=== PATIENT | male | born 1950 | race Caucasian/White ===

== ENCOUNTER 2017-04-09 19:53 | Emergency (ER) | payer BC ==
[2017-04-09] MEDS ORDERED: Diphtheria,Pertussis(Acell),Tetanus Vaccine 0.5 ML Syringe IM ONE (19:58)
[2017-04-09] MEDS ORDERED: Bacitracin Oint 1 GM U/D Packet TOP ONE (19:59)
[2017-04-09] MEDS ORDERED: Lidocaine 1% 20 ML MDV INJECT ONE (19:59)
--- NOTE | 2017-04-09 20:02 | EDM.PDOC ---
ED HPI GENERAL MEDICAL PROBLEM - General Chief Complaint: Laceration Stated Complaint: CUT ON RIGHT HAND Time Seen by Provider: 04/09/17 20:00 Source of Information: Reports: Patient History Limitations: Reports: No Limitations - History of Present Illness INITIAL COMMENTS - FREE TEXT/NARRATIVE: HISTORY AND PHYSICAL: History of present illness: Patient is a 66-year-old male who presents to the emergency room with a laceration to the right hand. Patient was in his carotids working with a circular saw and received a 4 cm laceration to the web between the first and second digit. Patient has full range of motion without any difficulty Patient is unsure of his last tetanus shot, we will provide that today. Review of systems: As per history of present illness and below otherwise all systems reviewed and negative. Past medical history: As per history of present illness and as reviewed below otherwise noncontributory. Surgical history: As per history of present illness and as reviewed below otherwise noncontributory. Social history: No reported history of drug or alcohol abuse. Family history: As per history of present illness and as reviewed below otherwise noncontributory. Physical exam: HEENT: Atraumatic, normocephalic, pupils reactive, negative for conjunctival pallor or scleral icterus, mucous membranes moist, throat clear, neck supple, nontender, trachea midline. Lungs: Clear to auscultation, breath sounds equal bilaterally, chest nontender. Heart: S1S2, regular, negative for clicks, rubs, or JVD. Abdomen: Soft, nondistended, nontender. Negative for masses or hepatosplenomegaly. Negative for costovertebral tenderness. Pelvis: Stable nontender. Genitourinary: Deferred. Rectal: Deferred. Skin: 4 cm laceration to the web between the first and second digit on the right hand that reaches half way across the proximal knuckle. No tendon involvement. No current bleeding noted. Extremities: Atraumatic, negative for cords or calf pain. Neurovascular unremarkable. Neuro: Awake, alert, oriented. Cranial nerves II through XII unremarkable. Cerebellum unremarkable. Motor and sensory unremarkable throughout. Exam nonfocal. Diagnostics: X-ray of right hand Therapeutics: Lidocaine, bacitracin, nonstick dressing, Aluminum spoon splint Laceration was explored to the base in a bloodless field him a no tendon involvement. 6 interrupted sutures were completed using 4-0 nylon. Impression: Laceration Definitive disposition and diagnosis as appropriate pending reevaluation and review of above. Onset: Today Duration: Minutes: - Related Data Allergies Allergy/AdvReac Type Severity Reaction Status Date / Time No Known Allergies Allergy Verified 04/09/17 20:47 Home Meds: Home Meds Levothyroxine Sodium [Synthroid] 200 mcg PO ACBRK 11/18/13 [History] Lisinopril [Zestril] 10 mg PO DAILY 11/18/13 [History] Enoxaparin [Lovenox] 140 mg SUBCUT 0600,1800 #8 syringe 11/20/14 [Rx] Warfarin [Coumadin] 7.5 mg PO DAILY@1400 #6 tablet 11/20/14 [Rx] Past Medical History - Past Health History Medical/Surgical History: Denies Medical/Surgical History Social & Family History - Tobacco Use Smoking Status *Q: Former Smoker Years of Tobacco use: 10 Used Tobacco, but Quit: Yes Month Tobacco Last Used: 30 years ago Second Hand Smoke Exposure: Yes - Alcohol Use Days Per Week of Alcohol Use: 1 Number of Drinks Per Day: 1 Total Drinks Per Week: 1 - Recreational Drug Use Recreational Drug Use: No ED ROS GENERAL - Review of Systems Review Of Systems: ROS reveals no pertinent complaints other than HPI. ED EXAM, SKIN/RASH Exam: See Below (See dictation) ED SKIN PROCEDURES - Laceration/Wound Repair Right Hand Appearance: Subcutaneous Anesthetic Type: Local Local Anesthesia - Lidocaine (Xylocaine): 1% Plain Local Anesthetic Volume: Other (8) Skin Prep: Chlorhexidine (Hibiciens), Saline, Sterile Drape Exploration/Debridement/Repair: Wound Explored, In a Bloodless Field, No Foreign Material Found Closed with: Sutures Suture Size: 4-0 # of Sutures: 6 Suture Type: Nylon Course - Vital Signs Last Recorded V/S: Last Vital Signs Temp 36.4 C 04/09/17 20:00 Pulse 75 04/09/17 20:00 Resp 16 04/09/17 20:00 BP 130/71 04/09/17 20:00 Pulse Ox 99 04/09/17 20:00 - Orders/Labs/Meds Orders: Active Orders 24 hr Category Date Time Status Communication Order [RC] STAT Care 04/09/17 19:59 Active Communication Order [RC] STAT Care 04/09/17 20:45 Ordered Vaccines to be Administered [RC] PER UNIT ROUTINE Care 04/09/17 19:59 Active Hand 2V Rt [CR] Stat Exams 04/09/17 20:02 Taken Meds: Medications Discontinued Medications Generic Name Dose Route Start Last Admin Trade Name Lucho PRN Reason Stop Dose Admin Bacitracin 1 dose 04/09/17 19:59 04/09/17 20:08 Bacitracin Oint 1 Gm TOP 04/09/17 20:00 1 dose ONETIME ONE Administration Diphtheria/Tetanus/Acell Pertussis 0.5 ml 04/09/17 19:58 04/09/17 20:08 Adacel IM 04/09/17 19:59 0.5 ml .ONCE ONE Administration Lidocaine HCl 20 ml 04/09/17 19:59 04/09/17 20:07 Xylocaine 1% INJECT 04/09/17 20:00 20 ml ONETIME ONE Administration Departure - Departure Time of Disposition: 20:49 Disposition: Home, Self-Care 01 Condition: Good Clinical Impression: Laceration - Discharge Information Referrals: Daniele Thompson MD [Primary Care Provider] - Forms: ED Department Discharge Additional Instructions: The following information is given to patients seen in the emergency department who are being discharged to home. This information is to outline your options for follow-up care. We provide all patients seen in our emergency department with a follow-up referral. The need for follow-up, as well as the timing and circumstances, are variable depending upon the specifics of your emergency department visit. If you don't have a primary care physician on staff, we will provide you with a referral. We always advise you to contact your personal physician following an emergency department visit to inform them of the circumstance of the visit and for follow-up with them and/or the need for any referrals to a consulting specialist. The emergency department will also refer you to a specialist when appropriate. This referral assures that you have the opportunity for followup care with a specialist. All of these measure are taken in an effort to provide you with optimal care, which includes your followup. Under all circumstances we always encourage you to contact your private physician who remains a resource for coordinating your care. When calling for followup care, please make the office aware that this follow-up is from your recent emergency room visit. If for any reason you are refused follow-up, please contact the [facility] emergency department at and asked to speak to the emergency department charge nurse. BRITTNEY [facility] [address] [place] [id number] 1. Please keep the wound clean and dry as we discussed. The aluminum splint we have provided you will prevent the sutures from popping open as we discussed. Monitor for signs of infection as we discussed. 2. Sutures are to be removed in 7-10 days. Follow up with her primary care in the next 1-2 days. Follow-up in the ED as needed discussed - My Orders Last 24 Hours: My Active Orders 04/09/17 19:59 Communication Order [RC] STAT Vaccines to be Administered [RC] PER UNIT ROUTINE 04/09/17 20:02 Hand 2V Rt [CR] Stat 04/09/17 20:45 Communication Order [RC] STAT - Assessment/Plan Last 24 Hours: My Active Orders 04/09/17 19:59 Communication Order [RC] STAT Vaccines to be Administered [RC] PER UNIT ROUTINE 04/09/17 20:02 Hand 2V Rt [CR] Stat 04/09/17 20:45 Communication Order [RC] STAT
[2017-04-09 21:21] VITALS: BP 130/77
--- NOTE | 2017-04-10 10:16 | CR ---
EXAM DATE: 04/09/17 PATIENT'S AGE: 66 Patient: HAIM RICK Facility: [place] [place] Site . Site : 1950 Study: XRay Extremity Right hand [id number]/12/[id number] 8:24:35 PM Ordering Physician: Doctor Bennett Final Report: INDICATION: Pain, laceration TECHNIQUE: Three views right hand COMPARISON: None FINDINGS: Bones: Alignment is normal. No fractures or bone lesions. Joint spaces: Mild degenerative changes PIP and DIP joint spaces. Soft tissues: Unremarkable. IMPRESSION: No evidence of acute trauma. Mild degenerative changes PIP and DIP joint spaces Dictated by Daniele Felder MD @ 04/09/2017 8:47:27 PM Dictated by: Daniele Felder MD @ 04/09/2017 20:47:33 (Electronic Signature) Report Signed by Proxy. [facility] HOSPITALJolene
== END 2017-04-09 21:20 | disposition home or self-care (01) ==
LOC: MW.ED 19:53
DX: S61.411A Laceration without foreign body of right hand, initial encounter (principal); Z23 Encounter for immunization; Z87.891 Personal history of nicotine dependence; Z79.01 Long term (current) use of anticoagulants; Z79.899 Other long term (current) drug therapy; W29.8XXA Contact with other powered hand tools and household machinery, initial encounter
CPT/HCPCS: 12002; 73120-26-RT; 73120-RT; 90471; 90715; 99283; 99283-25

== ENCOUNTER 2020-11-08 09:13 | Day surgery (SDC) | payer BC ==
[~2020-11-08 09:13] MED LIST: Lactated Ringers 1,000 ML IV SCH; Sodium Chloride 0.9% 10 ML SDV IV PRN; Sodium Chloride 0.9% 10 ML Syringe FLUSH PRN; Sodium Chloride 0.9% 2.5 ML Syringe FLUSH PRN; cefOXitin 2 GM in Premix Bag 1 BAG IV ONE
--- NOTE | 2020-11-08 10:57 | PCM.PREANE ---
Preanesthetic Assessment - Anesthesia/Transfusion/Family Hx Anesthesia History: Prior Anesthesia Without Reaction Family History of Anesthesia Reaction: No Transfusion History: No Prior Transfusion(s) - Review of Systems General: No Symptoms Pulmonary: No Symptoms Cardiovascular: No Symptoms Gastrointestinal: No Symptoms Neurological: No Symptoms Other: Reports: None - Physical Assessment NPO Status Date: 11/08/20 NPO Status Time: 00:05 Vital Signs: Last Vital Signs Temp 97.3 F 11/08/20 10:17 Pulse 90 11/08/20 10:17 Resp 16 11/08/20 10:17 BP 140/81 11/08/20 10:17 Pulse Ox 94 L 11/08/20 10:17 Height: 6 ft Weight: 287 lb ASA Class: 2 Mental Status: Alert & Oriented x3 Airway Class: Mallampati = 3 Dentition: Reports: Normal Dentition, Partial ROM/Head Extension: Limited/Partial Lungs: Clear to Auscultation, Normal Respiratory Effort Cardiovascular: Regular Rate, Regular Rhythm - Allergies Allergies/Adverse Reactions: Allergies Allergy/AdvReac Type Severity Reaction Status Date / Time No Known Allergies Allergy Verified 11/08/20 10:14 - Anesthesia Plan Pre-Op Medication Ordered: None - Acknowledgements Anesthesia Type Planned: General Anesthesia Pt an Appropriate Candidate for the Planned Anesthesia: Yes Alternatives and Risks of Anesthesia Discussed w Pt/Guardian: Yes Pt/Guardian Understands and Agrees with Anesthesia Plan: Yes Additional Comments: npo aftr mn asthma prn inhalers htn no cv problems tob quit 1989 chew tob now etoh daily 1-2 beers, occ whisky obesity bmi 41 had pulmonary embolus abt 7 years ago treated with coumadin. He stopped this med several years ago mal 3 aw, partial lower denture par no questions PreAnesthesia Questionnaire - Past Health History Medical/Surgical History: Denies Medical/Surgical History HEENT History: Reports: Other (See Below) Other HEENT History: wears glasses, bottom partial Cardiovascular History: Reports: Hypertension Respiratory History: Reports: Asthma, PE Other Respiratory History: PT in the past Gastrointestinal History: Reports: Hemorrhoids Genitourinary History: Reports: None Musculoskeletal History: Reports: None Neurological History: Reports: None Psychiatric History: Reports: None Endocrine/Metabolic History: Reports: Hypothyroidism, Obesity/BMI 30+ Hematologic History: Reports: None Immunologic History: Reports: None Oncologic (Cancer) History: Reports: None Dermatologic History: Reports: Eczema - Infectious Disease History Infectious Disease History: Reports: Chicken Pox, Measles - Past Surgical History Head Surgeries/Procedures: Reports: None HEENT Surgical History: Reports: None Cardiovascular Surgical History: Reports: None Respiratory Surgical History: Reports: None GI Surgical History: Reports: None Male Surgical History: Reports: None Endocrine Surgical History: Reports: None Neurological Surgical History: Reports: None Musculoskeletal Surgical History: Reports: None Oncologic Surgical History: Reports: None Dermatological Surgical History: Reports: None - SUBSTANCE USE Tobacco Use Status *Q: Former Tobacco User Tobacco Use Within Last Twelve Months: Other (See Below) Days Per Week of Alcohol Use: 7 Number of Drinks Per Day: 2 Total Drinks Per Week: 14 Recreational Drug Use History: No - HOME MEDS Home Medications: Home Meds Levothyroxine Sodium [Synthroid] 200 mcg PO ACBRK 11/18/13 [History] Albuterol Sulfate [Albuterol Sulfate HFA] 2 puff INH ASDIRECTED PRN 11/02/20 [History] Ergocalciferol (Vitamin D2) [Vitamin D2] 50,000 units PO ASDIRECTED 11/02/20 [History] Hydrocortisone [Hydrocortisone 2.5% Crm] 1 applic TOP ASDIRECTED PRN 11/02/20 [History] Lisinopril/Hydrochlorothiazide [Lisinopril-HCTZ 10-12.5 MG] 1 tab PO DAILY 11/02/20 [History] - CURRENT (IN HOUSE) MEDS Current Meds: Current Medications Lactated Ringer's (Ringers, Lactated) 1,000 mls @ 125 mls/hr IV ASDIRECTED [facility] Last Admin: 11/08/20 10:13 Dose: 125 mls/hr Documented by: Sodium Chloride (Sodium Chloride 0.9% 10 Ml Syringe) 10 ml FLUSH ASDIRECTED PRN PRN Reason: Keep Vein Open Sodium Chloride (Sodium Chloride 0.9% 2.5 Ml Syringe) 2.5 ml FLUSH ASDIRECTED PRN PRN Reason: Keep Vein Open Sodium Chloride (Sodium Chloride 0.9% 10 Ml Syringe) 10 ml FLUSH ASDIRECTED PRN PRN Reason: Keep Vein Open Sodium Chloride (Sodium Chloride 0.9% 2.5 Ml Syringe) 2.5 ml FLUSH ASDIRECTED PRN PRN Reason: Keep Vein Open Sodium Chloride (Sodium Chloride 0.9% 10 Ml Sdv) 10 ml IV ASDIRECTED PRN PRN Reason: IV Use Discontinued Medications Cefoxitin Sodium 2 gm/ Premix 50 mls @ 100 mls/hr IV ONETIME ONE Stop: 11/07/20 09:00
[2020-11-08] MEDS ORDERED: Bupivacaine 0.5% 30 ML SDV ONE (11:01)
[2020-11-08] MEDS ORDERED: Lidocaine 2% Jelly 30 ML Tube ONE (11:02)
[2020-11-08] MEDS ORDERED: fentaNYL 100 MCG/2 ML SDV ONE (11:10)
[2020-11-08] MEDS ORDERED: Midazolam 1 MG/ML 2 ML SDV ONE (11:10)
[2020-11-08] MEDS ORDERED: Propofol 200 MG/20 ML SDV ONE ×3 (11:11→12:18)
[2020-11-08] MEDS ORDERED: Sodium Chloride 0.9% 20 ML ONE (11:21)
[2020-11-08] MEDS ORDERED: cefOXitin 1 GM Vial ONE (11:21)
--- NOTE | 2020-11-08 12:47 | PCM.OPNOTE ---
- General Post-Op/Procedure Note Date of Surgery/Procedure: 11/08/20 Operative Procedure(s): Screening colonoscopy with polypectomy, single column hemorrhoidectomy Findings: Large pedunculated right posterior hemorrhoid, transverse colon polyp, diverticulosis throughout the colon Pre Op Diagnosis: Hemorrhoid, Screening colonoscopy Post-Op Diagnosis: Hemorrhoid, transverse colon polyp, diverticulosis Anesthesia Technique: [facility] Primary Surgeon: Josselyn Jones Fluid Replacement, Intraop: 700 EBL in mLs: 5 Condition: Good
--- NOTE | 2020-11-08 13:11 | PCM.POSTAN ---
POST ANESTHESIA ASSESSMENT - MENTAL STATUS Mental Status: Alert (no anesthetic problems), Oriented - VITAL SIGNS Vital Signs: Last Vital Signs Temp 97.2 F 11/08/20 12:37 Pulse 100 11/08/20 12:56 Resp 15 11/08/20 12:56 BP 100/51 L 11/08/20 12:56 Pulse Ox 93 L 11/08/20 12:56 - RESPIRATORY Respiratory Status: Respiratory Rate WNL, Airway Patent, O2 Saturation Stable - CARDIOVASCULAR CV Status: Pulse Rate WNL, Blood Pressure Stable - GASTROINTESTINAL GI Status: No Symptoms - POST OP HYDRATION Hydration Status: Adequate & Stable
--- NOTE | 2020-11-08 13:51 | PCM48HPAN ---
Post Anesthesia Note - EVALUATION WITHIN 48HRS OF ANESTHETIC Vital Signs in Normal Range: Yes Patient Participated in Evaluation: Yes Respiratory Function Stable: Yes Airway Patent: Yes Cardiovascular Function Stable: Yes Hydration Status Stable: Yes Pain Control Satisfactory: Yes Nausea and Vomiting Control Satisfactory: Yes Mental Status Recovered: Yes Vital Signs: Last Vital Signs Temp 97.2 F 11/08/20 12:37 Pulse 100 11/08/20 12:56 Resp 15 11/08/20 12:56 BP 100/51 L 11/08/20 12:56 Pulse Ox 93 L 11/08/20 12:56
[2020-11-08 14:19] VITALS: BP 131/75; PULSE 86
--- NOTE | 2020-11-09 17:38 | OR ---
SURGEON: JOSSELYN JONES MD DATE OF PROCEDURE: 11/08/2020 PREOPERATIVE DIAGNOSES: 1. Screening colonoscopy. 2. Hemorrhoidectomy. PROCEDURE PERFORMED: 1. Screening colonoscopy with polypectomy. 2. Hemorrhoidectomy. PRIMARY SURGEON: Josselyn Jones MD ANESTHESIA: MAC, local. FLUIDS: See Anesthesia record. ESTIMATED BLOOD LOSS: 3 mL. FINDINGS: Transverse colon polyp, diverticulosis throughout the colon, and a large right posterior external hemorrhoid. PREPARATION: Good. LIMITATIONS: None. COMPLICATIONS: None. INDICATIONS: The patient is a 70-year-old male who came to see me for a screening colonoscopy. He also was complaining of a large external hemorrhoid, which is causing him intermittent discomfort and making it difficult to keep himself clean. Physical exam revealed a large pedunculated external hemorrhoid that would be amenable to resection. I explained the colonoscopy procedure as well as the hemorrhoidectomy procedure. We went through the expected perioperative course and the risks. He verbalized understanding and wishes to proceed. PROCEDURE IN DETAIL: The patient was brought into the endoscopy suite and placed in the left lateral decubitus position. A time-out was completed verifying the patient's name, age, date of , allergies, and procedure to be performed. Monitored anesthesia care was induced and continuous oxygen was provided via nasal cannula throughout the procedure. After adequate sedation was achieved, a digital rectal exam was performed. Again, I noted a right posterior external hemorrhoid, which was quite large. The remainder of the digital rectal exam was normal. A well- lubricated colonoscope was then inserted into the rectum and advanced under direct visualization to the level of the cecum. The patient had a very redundant colon making it difficult for me to get to the cecum. I was able to look within the cecal cap but not intubate it. After multiple position changes and other attempts, a photograph of this was taken, and I made no further attempts to physically enter the cecum or retroflex the scope within that area. The scope was fully withdrawn, and I closely inspected the mucosa throughout the colon. The patient had diverticulosis even within the ascending colon. In the mid transverse colon, the patient was noted to have a small sessile polyp. This was removed in piecemeal fashion using cold biopsy forceps. The remainder of the exam was normal, and the scope was retroflexed within the rectum to allow visualization of the anal canal opening. The internal hemorrhoids appeared normal. A photograph was taken. The scope was straightened out and fully withdrawn. The cecum to anus time was 16 minutes. This portion the procedure was ended. I then began preparation for the external hemorrhoidectomy. The buttocks and anoderm were prepped and draped in usual standard fashion. I anesthetized the skin around and underneath the external hemorrhoid with 0.5% Marcaine plain. A Erika clamp was used to grasp the hemorrhoid. Using needle- tip cautery, I then excised the hemorrhoid in a blayne-shaped fashion over its base. The external hemorrhoid was excised and sent to Pathology. The mucosal and anoderm defect were then closed using a 2-0 chromic suture. On the mucosa, I used a running locking stitch. On the anoderm, I used a simple stitch. I then inspected my operative field for hemostasis. The area appeared hemostatic. I then circumferentially anesthetized the anoderm with the remaining 0.5% Marcaine plain. Fluffs and mesh underwear were then applied. The patient was placed in supine position and awoken. He was taken to PACU in stable condition. All counts were complete and correct at the end of the case. ENDOSCOPIC DIAGNOSES: Transverse colon polyp, diverticulosis throughout the colon, and a large right posterior external hemorrhoid. RECOMMENDATIONS: Follow up in clinic in 2 weeks. YOLANDA BARNARD /[id number] MTDJolene
== END 2020-11-08 14:00 | disposition home or self-care (01) ==
LOC: MW.SDS 09:13
PROVIDERS: ATTEND Surgery
DX: D12.3 Benign neoplasm of transverse colon (principal); K64.4 Residual hemorrhoidal skin tags; K64.8 Other hemorrhoids; K57.30 Diverticulosis of large intestine without perforation or abscess without bleeding; E66.9 Obesity, unspecified; F17.210 Nicotine dependence, cigarettes, uncomplicated; I10 Essential (primary) hypertension; E03.9 Hypothyroidism, unspecified; E55.9 Vitamin D deficiency, unspecified; Z79.899 Other long term (current) drug therapy; Z68.38 Body mass index [BMI] 38.0-38.9, adult; Z79.890 Hormone replacement therapy; Z98.890 Other specified postprocedural states
CPT/HCPCS: 45380; 46999; 88304; 88305; J0694; J2250; J2704; J3010; J3490; J7120; 00902

== ENCOUNTER 2021-05-17 13:56 | Emergency (ER) | payer BC ==
[2021-05-17] MEDS ORDERED: Sodium Chloride 0.9% 2.5 ML Syringe FLUSH PRN (14:04)
[2021-05-17] MEDS ORDERED: Sodium Chloride 0.9% 10 ML Syringe FLUSH PRN (14:04)
--- NOTE | 2021-05-17 14:35 | EDM.PDOC ---
<Lorne Fuentes - Last Filed: 05/17/21 18:01> ED HPI GENERAL MEDICAL PROBLEM - General Chief Complaint: Chest Pain Stated Complaint: CHEST PAIN, SOB Time Seen by Provider: 05/17/21 14:19 - History of Present Illness INITIAL COMMENTS - FREE TEXT/NARRATIVE: History of present illness: [] The patient noticed when he woke up about 6 hours ago that he had pain in his left chest. There was a dull pain and then it was an intermittent sharp pain it was very very brief. It is associated with some mild diaphoresis no nausea but significant shortness of breath. He has been short of breath for years but he is a little more short of breath today. The patient smoked a total of less than 10 years and stopped more than 30 years ago. The patient has had a history of a pulmonary embolus 8 years ago and is a longtime off blood thinners. The patient has been told that because of his shortness of breath he needs to have a stress test but he has not had it. Review of systems: As per history of present illness and below otherwise all systems reviewed and negative. Past medical history: As per history of present illness and as reviewed below otherwise noncontributory. Surgical history: As per history of present illness and as reviewed below otherwise noncontributory. Social history: No reported history of drug or alcohol abuse. Family history: As per history of present illness and as reviewed below otherwise noncontributory. Physical exam: Constitutional -patient is obese-please see height and weight regarding his BMI- well developed, well-nourished and in no acute distress HEENT - normocephalic, no evidence of trauma - external nose and mouth normal - no mass in neck and no JVD - mucosae moist EYES - full EOM, PERRL, no icterus - no evidence of inflammation, injection, or drainage Respiratory - no respiratory distress, equal bilateral expansion, lungs clear to auscultation and no abnormal lung sounds Cardiovascular - Regular Rhythm with S1 and S2 appreciated and no murmur, gallop or rub. GI - abdomen soft without distension or organomegaly - normal bowel sounds - no guard or rebound Musculoskeletal no gross deformity of long bones or joints - no tenderness, swelling or edema Neurologic - Alert and oriented times four - CN II-XII grossly intact - motor sensory and coordination symmetrically normal Psychiatric - appropriate mood and affect with normal thought content Hematologic - No petechiae or purpura - mucosa appropriate color and sclera not pale - normal nail bed color and refill Integument - no rash or evidence of trauma - normal turgor Diagnostics: [] Therapeutics: [] Impression: [] Plan: [] Definitive disposition and diagnosis as appropriate pending reevaluation and review of above. chest Pain Score (Numeric/FACES): 2 - Related Data Allergies Allergy/AdvReac Type Severity Reaction Status Date / Time No Known Allergies Allergy Verified 11/08/20 10:14 Home Meds: Home Meds Levothyroxine Sodium [Synthroid] 200 mcg PO ACBRK 11/18/13 [History] Albuterol Sulfate [Albuterol Sulfate HFA] 2 puff INH ASDIRECTED PRN 11/02/20 [History] Past Medical History - Past Health History Medical/Surgical History: Denies Medical/Surgical History HEENT History: Reports: Other (See Below) Other HEENT History: wears glasses, bottom partial Cardiovascular History: Reports: Hypertension Respiratory History: Reports: Asthma, PE Other Respiratory History: PT in the past Gastrointestinal History: Reports: Hemorrhoids Genitourinary History: Reports: None Musculoskeletal History: Reports: None Neurological History: Reports: None Psychiatric History: Reports: None Endocrine/Metabolic History: Reports: Hypothyroidism, Obesity/BMI 30+ Hematologic History: Reports: None Immunologic History: Reports: None Oncologic (Cancer) History: Reports: None Dermatologic History: Reports: Eczema - Infectious Disease History Infectious Disease History: Reports: Chicken Pox, Measles - Past Surgical History Head Surgeries/Procedures: Reports: None HEENT Surgical History: Reports: None Cardiovascular Surgical History: Reports: None Respiratory Surgical History: Reports: None GI Surgical History: Reports: None Male Surgical History: Reports: None Endocrine Surgical History: Reports: None Neurological Surgical History: Reports: None Musculoskeletal Surgical History: Reports: None Oncologic Surgical History: Reports: None Dermatological Surgical History: Reports: None ED ROS GENERAL - Review of Systems Review Of Systems: Comprehensive ROS is negative, except as noted in HPI. ED EXAM, GENERAL - Physical Exam Exam: See Below Free Text/Narrative:: My physical exam is in the HPI #1 Interpretation EKG Interpretation Comments: EKG performed 05/17/2021 at 2 PM shows atrial flutter with heart rate 86 QRS duration 136 QT duration 41 axis 75 right bundle branch pattern on the QRS. Compared to 11/18/2014 conduction is changed and the rhythm is changed from sinus. Impression new atrial flutter. Departure - Departure Disposition: Home, Self-Care 01 Condition: Good Clinical Impression: Dyspnea Qualifiers: Dyspnea type: unspecified Qualified Code(s): R06.00 - Dyspnea, unspecified Atrial flutter Qualifiers: Atrial flutter type: unspecified Qualified Code(s): I48.92 - Unspecified atrial flutter - Discharge Information Instructions: Shortness of Breath, Adult, [id number], Atrial Flutter Referrals: Tamia Haas PA [Primary Care Provider] - Forms: ED Department Discharge Additional Instructions: You have a condition called atrial flutter. This is an irregular heartbeat but your rate is controlled. The appropriate follow-up is to see a manager assembly as soon as possible and have them go proceed with the stress test you had considered in the past and decide if you need anticoagulation or medication or cardioversion. [facility] - cardiology [address] [place] [address] The following information is given to patients seen in the emergency department who are being discharged to home. This information is to outline your options for follow-up care. We provide all patients seen in our emergency department with a follow-up referral. The need for follow-up, as well as the timing and circumstances, are variable depending upon the specifics of your emergency department visit. If you don't have a primary care physician on staff, we will provide you with a referral. We always advise you to contact your personal physician following an emergency department visit to inform them of the circumstance of the visit and for follow-up with them and/or the need for any referrals to a consulting specialist. The emergency department will also refer you to a specialist when appropriate. This referral assures that you have the opportunity for follow-up care with a specialist. All of these measure are taken in an effort to provide you with optimal care, which includes your follow-up. Under all circumstances we always encourage you to contact your private physician who remains a resource for coordinating your care. When calling for follow-up care, please make the office aware that this follow-up is from your recent emergency room visit. If for any reason you are refused follow-up, please contact the [facility] Emergency Department at and asked to speak to the emergency department charge nurse. [facility] - Primary Care [address] [place] [address] [facility] [address] [place] [id number] <Edu Paredes - Last Filed: 05/17/21 18:21> Course - Vital Signs Last Recorded V/S: Last Vital Signs Temp 98.4 F 05/17/21 14:10 Pulse 83 05/17/21 15:37 Resp 20 05/17/21 15:37 BP 135/87 05/17/21 15:37 Pulse Ox 94 L 05/17/21 15:37 - Orders/Labs/Meds Orders: Active Orders 24 hr Category Date Time Status Cardiac Monitoring [RC] . DIRECTED Care 05/17/21 14:04 Active Sodium Chloride 0.9% [Saline Flush] Med 05/17/21 14:04 Active 10 ml FLUSH ASDIRECTED PRN Sodium Chloride 0.9% [Saline Flush] Med 05/17/21 14:04 Active 2.5 ml FLUSH ASDIRECTED PRN Saline Lock Insert [OM.PC] Stat Oth 05/17/21 14:04 Ordered Medication Orders Sodium Chloride (Sodium Chloride 0.9% 10 Ml Syringe) 10 ml FLUSH ASDIRECTED PRN PRN Reason: Keep Vein Open Last Admin: 05/17/21 14:40 Dose: 10 ml Documented by: THELMA Sodium Chloride (Sodium Chloride 0.9% 2.5 Ml Syringe) 2.5 ml FLUSH ASDIRECTED PRN PRN Reason: Keep Vein Open Last Admin: 05/17/21 14:40 Dose: 2.5 ml Documented by: THELMA Labs: Laboratory Tests 05/17/21 05/17/21 05/17/21 Range/Units 14:22 14:22 14:22 WBC 10.94 (4.0-11.0) K/uL RBC 4.82 (4.50-5.90) M/uL Hgb 15.8 (13.0-17.0) g/dL Hct 46.8 (38.0-50.0) % MCV 97.1 (80.0-98.0) fL MCH 32.8 H (27.0-32.0) pg MCHC 33.8 (31.0-37.0) g/dL RDW Std Deviation 52.3 (28.0-62.0) fl RDW Coeff of Annie 15 (11.0-15.0) % Plt Count 249 (150-400) K/uL MPV 9.30 (7.40-12.00) fL Neut % (Auto) 81.8 H (48.0-80.0) % Lymph % (Auto) 9.3 L (16.0-40.0) % Franklin % (Auto) 8.1 (0.0-15.0) % Eos % (Auto) 0.5 (0.0-7.0) % Baso % (Auto) 0.3 (0.0-1.5) % Neut # (Auto) 9.0 H (1.4-5.7) K/uL Lymph # (Auto) 1.0 (0.6-2.4) K/uL Franklin # (Auto) 0.9 H (0.0-0.8) K/uL Eos # (Auto) 0.1 (0.0-0.7) K/uL Baso # (Auto) 0.0 (0.0-0.1) K/uL Nucleated RBC % 0.0 /100WBC Nucleated RBCs # 0 K/uL D-Dimer, Quantitative 1.78 H (0.0-0.50) mg/L FEU Sodium 138 (136-148) mmol/L Potassium 5.1 (3.5-5.1) mmol/L Chloride 99 (98-107) mmol/L Carbon Dioxide 29.8 (21.0-32.0) mmol/L BUN 15 (7.0-18.0) mg/dL Creatinine 0.9 (0.8-1.3) mg/dL Est Cr Clr Drug Dosing 86.22 mL/min Estimated GFR (MDRD) > 60.0 ml/min Glucose 118 H (74-106) mg/dL Calcium 9.2 (8.5-10.1) mg/dL Total Bilirubin 1.9 H (0.2-1.0) mg/dL AST 35 (15-37) IU/L ALT 34 (14-63) IU/L Alkaline Phosphatase 118 H (46-116) U/L Troponin I < 0.050 (0.000-0.056) ng/mL Total Protein 7.9 (6.4-8.2) g/dL Albumin 3.6 (3.4-5.0) g/dL Globulin 4.3 H (2.6-4.0) g/dL Albumin/Globulin Ratio 0.8 L (0.9-1.6) 05/17/21 Range/Units 17:45 WBC (4.0-11.0) K/uL RBC (4.50-5.90) M/uL Hgb (13.0-17.0) g/dL Hct (38.0-50.0) % MCV (80.0-98.0) fL MCH (27.0-32.0) pg MCHC (31.0-37.0) g/dL RDW Std Deviation (28.0-62.0) fl RDW Coeff of Annie (11.0-15.0) % Plt Count (150-400) K/uL MPV (7.40-12.00) fL Neut % (Auto) (48.0-80.0) % Lymph % (Auto) (16.0-40.0) % Franklin % (Auto) (0.0-15.0) % Eos % (Auto) (0.0-7.0) % Baso % (Auto) (0.0-1.5) % Neut # (Auto) (1.4-5.7) K/uL Lymph # (Auto) (0.6-2.4) K/uL Franklin # (Auto) (0.0-0.8) K/uL Eos # (Auto) (0.0-0.7) K/uL Baso # (Auto) (0.0-0.1) K/uL Nucleated RBC % /100WBC Nucleated RBCs # K/uL D-Dimer, Quantitative (0.0-0.50) mg/L FEU Sodium (136-148) mmol/L Potassium (3.5-5.1) mmol/L Chloride (98-107) mmol/L Carbon Dioxide (21.0-32.0) mmol/L BUN (7.0-18.0) mg/dL Creatinine (0.8-1.3) mg/dL Est Cr Clr Drug Dosing mL/min Estimated GFR (MDRD) ml/min Glucose (74-106) mg/dL Calcium (8.5-10.1) mg/dL Total Bilirubin (0.2-1.0) mg/dL AST (15-37) IU/L ALT (14-63) IU/L Alkaline Phosphatase (46-116) U/L Troponin I < 0.050 (0.000-0.056) ng/mL Total Protein (6.4-8.2) g/dL Albumin (3.4-5.0) g/dL Globulin (2.6-4.0) g/dL Albumin/Globulin Ratio (0.9-1.6) Meds: Medications Generic Name Dose Route Start Last Admin Trade Name Freq PRN Reason Stop Dose Admin Sodium Chloride 10 ml 05/17/21 14:04 05/17/21 14:40 Sodium Chloride 0.9% 10 Ml Syringe FLUSH 10 ml ASDIRECTED PRN Administration Keep Vein Open Sodium Chloride 2.5 ml 05/17/21 14:04 05/17/21 14:40 Sodium Chloride 0.9% 2.5 Ml Syringe FLUSH 2.5 ml ASDIRECTED PRN Administration Keep Vein Open Discontinued Medications Generic Name Dose Route Start Last Admin Trade Name Freq PRN Reason Stop Dose Admin Iopamidol 100 ml 05/17/21 17:55 05/17/21 17:55 Iopamidol 755 Mg/Ml 100 Ml Bottle IVPUSH 05/17/21 17:56 100 ml ONETIME ONE Administration - Re-Assessments/Exams Free Text/Narrative Re-Assessment/Exam: 05/17/21 18:21 Repeat troponin is negative. Will discharge with cardiology follow-up. Departure - Departure Time of Disposition: 18:21 Sepsis Event Note (ED) - Focused Exam Vital Signs: Vital Signs Temp Pulse Resp BP Pulse Ox 05/17/21 15:37 83 20 135/87 94 L 05/17/21 14:10 98.4 F 83 20 137/82 95
--- NOTE | 2021-05-17 14:40 | CR ---
INDICATION: Chest pain. TECHNIQUE: Chest 1 view. COMPARISON: Chest radiograph 12/09/2020. FINDINGS: Small right pleural effusion and right basilar atelectasis. No pneumothorax. Stable mild cardiomegaly. Normal pulmonary vascularity. The bones are unremarkable. IMPRESSION: 1. Small right pleural effusion and right basilar atelectasis. 2. Stable mild cardiomegaly. Dictated by So Francis MD @ 05/17/2021 2:39:36 PM (Electronically Signed)
[2021-05-17 15:04] LABS: BLOOD UREA NITROGEN,BUN 15 mg/dL (7.0-18.0); CARBON DIOXIDE,CO2 29.8 mmol/L (21.0-32.0); CHLORIDE,CL 99 mmol/L (98-107); GLUCOSE RANDOM 118 mg/dL (74-106); POTASSIUM,K 5.1 mmol/L (3.5-5.1); SODIUM,NA 138 mmol/L (136-148)
--- NOTE | 2021-05-17 17:43 | CT ---
INDICATION: Dyspnea. Positive D-dimer. COMPARISON: Plain film same date and CT 09 Dec 2020. TECHNIQUE: 100 mL Isovue-370 IV contrast. FINDINGS: No pulmonary embolism was acute. Soft tissue at the periphery of the right main pulmonary artery bifurcation into the lower lobe artery looks similar to before. Moderately large dependent right pleural effusions stable from comparison. Pack ascites under the right hemidiaphragm. No pathologic mediastinal or hilar adenopathy. No right heart strain finding. Lung parenchyma is clear. Mild interstitial peribronchial thickening in the lower lobes greater than the upper. IMPRESSION: No evidence for acute PE. Some evidence for possible pulmonary artery wall thickening at the bifurcation of right main pulmonary artery could be sequela of chronic PE. Stable moderate-sized dependent right pleural effusion. Stable perihepatic ascites. Please note that all CT scans at this facility use dose modulation, iterative reconstruction, and/or weight-based dosing when appropriate to reduce radiation dose to as low as reasonably achievable. Dictated by Nick Neves MD @ 05/17/2021 5:41:02 PM (Electronically Signed)
[2021-05-17] MEDS ORDERED: Iopamidol 755 Mg/ML 100 ML Bottle IVPUSH ONE (17:55)
[2021-05-17 18:37] VITALS: BP 132/90; PULSE 80
== END 2021-05-17 18:43 | disposition home or self-care (01) ==
LOC: MW.ED 13:56
DX: I48.92 Unspecified atrial flutter (principal); I10 Essential (primary) hypertension; J45.909 Unspecified asthma, uncomplicated; E03.9 Hypothyroidism, unspecified; E66.9 Obesity, unspecified; Z68.38 Body mass index [BMI] 38.0-38.9, adult; Z79.899 Other long term (current) drug therapy
CPT/HCPCS: 36415; 71045; 71275; 80053; 84484; 85025; 85379; 99285; Q9967

== ENCOUNTER 2024-10-12 15:09 | Emergency (ER) | payer BC ==
[2024-10-12 16:06] LABS: BASOPHILS ABSOLUTE AUTO 0.06 K/uL (0.00-0.20); BASOPHILS PERCENT AUTO 0.9 % (0.0-1.0); EOSINOPHILS ABSOLUTE AUTO 0.14 K/uL (0.00-0.45); HEMATOCRIT 37.7 % (42.0-52.0); HEMOGLOBIN 12.6 g/dL (14.0-18.0); IMMATURE GRAN ABSOLUTE AUTO 0.02 K/uL (0.00-0.05); IMMATURE GRAN PERCENT AUTO 0.3 % (0.0-0.4); LYMPHOCYTES ABSOLUTE AUTO 1.15 K/uL (1.00-4.80); LYMPHOCYTES PERCENT AUTO 16.4 % (24.0-44.0); MEAN CORPUSCULAR HEMOGLOBIN 33.5 pg (28.0-32.0); MEAN CORPUSCULAR HGB CONC 33.4 g/dL (32.0-36.0); MEAN CORPUSCULAR VOLUME 100.3 fL (83.0-99.0); MEAN PLATELET VOLUME 8.7 fL (9.4-12.4); MONOCYTES ABSOLUTE AUTO 0.64 K/uL (0.00-0.80); MONOCYTES PERCENT AUTO 9.1 % (0.0-8.0); NEUTROPHILS PERCENT AUTO 71.3 % (41.0-71.0); PLATELET COUNT,PLT 230 K/uL (150-400); RED BLOOD CELL COUNT 3.76 M/uL (4.52-5.90); WHITE BLOOD CELL COUNT,WBC 7.01 K/uL (3.9-11.3)
[2024-10-12 16:16] LABS: INR 1.2 (0.86-1.11)
[2024-10-12 16:39] LABS: A/G RATIO 0.9 (0.9-1.6); ALANINE AMINOTRANSFERASE,ALT 22 IU/L (14-63); ALBUMIN 3.5 g/dL (3.4-5.0); ALKALINE PHOSPHATASE 102 U/L (46-116); ASPARTATE AMNIOTRANSFERASE,AST 26 IU/L (15-37); BILIRUBIN TOTAL 1.3 mg/dL (0.2-1.0); BLOOD UREA NITROGEN,BUN 32 mg/dL (7.0-18.0); CARBON DIOXIDE,CO2 25.2 mmol/L (21.0-32.0); CHLORIDE,CL 99 mmol/L (98-107); CREATININE 1.7 mg/dL (0.8-1.3); GLUCOSE RANDOM 136 mg/dL (74-106); LIPASE 94 U/L (16-77); MAGNESIUM 2.4 mg/dL (1.8-2.4); PRO B-TYPE NATRIUR PEPT,BNPPRO 2066 pg/mL (0-125); PROTEIN TOTAL,TP 7.6 g/dL (6.4-8.2); SODIUM,NA 136 mmol/L (136-148)
[2024-10-12 16:44] LABS: ESTIMATED GFR 42 mL/min (>60)
[2024-10-12] MEDS ORDERED: Furosemide 40 MG Tab PO ONE (17:27)
[2024-10-12] MEDS: Furosemide 40 MG/4 ML VIAL IVPUSH ONE ×2 (17:46)
[2024-10-12] MEDS ORDERED: Acetaminophen 325 MG Tab PO PRN (17:47)
[2024-10-12] MEDS ORDERED: Polyethylene Glycol 3350 Powder 17 GM Packet PO PRN (17:47)
[2024-10-12 19:55] VITALS: BP 125/69; PULSE 78
[2024-10-13] MEDS ORDERED: Furosemide 40 MG/4 ML VIAL IVPUSH SCH (08:00)
== END 2024-10-12 19:54 | disposition home or self-care (01) ==
LOC: MW.ED 15:09 → MW.MS 17:38 → UNDOADMOB 17:38 → UNDODISOB 10-13 01:30
DX: I11.0 Hypertensive heart disease with heart failure (principal); I50.9 Heart failure, unspecified; R79.89 Other specified abnormal findings of blood chemistry; J45.909 Unspecified asthma, uncomplicated; E03.9 Hypothyroidism, unspecified; E66.9 Obesity, unspecified; Z68.33 Body mass index [BMI] 33.0-33.9, adult; Z79.51 Long term (current) use of inhaled steroids; Z79.01 Long term (current) use of anticoagulants; Z79.890 Hormone replacement therapy; Z79.899 Other long term (current) drug therapy
CPT/HCPCS: 36415; 71045; 80053; 83690; 83735; 83880; 84484; 85025; 85610; 87428; 93005; 96374; 99285; J1940

== ENCOUNTER 2025-04-09 18:32 | Emergency (ER) | payer BC ==
[2025-04-09] MEDS ORDERED: Sodium Chloride 0.9% 10 ML Syringe FLUSH PRN (18:52)
[2025-04-09] MEDS ORDERED: Sodium Chloride 0.9% 2.5 ML Syringe FLUSH PRN (18:52)
[2025-04-09 18:53] LABS: BASOPHILS ABSOLUTE AUTO 0.06 K/uL (0.00-0.20); BASOPHILS PERCENT AUTO 0.6 % (0.0-1.0); EOSINOPHILS ABSOLUTE AUTO 0.19 K/uL (0.00-0.45); EOSINOPHILS PERCENT AUTO 1.9 % (0.0-6.0); IMMATURE GRAN ABSOLUTE AUTO 0.04 K/uL (0.00-0.05); IMMATURE GRAN PERCENT AUTO 0.4 % (0.0-0.4); LYMPHOCYTES ABSOLUTE AUTO 1.98 K/uL (1.00-4.80); LYMPHOCYTES PERCENT AUTO 20.1 % (24.0-44.0); MEAN PLATELET VOLUME 8.7 fL (9.4-12.4); MONOCYTES ABSOLUTE AUTO 1.00 K/uL (0.00-0.80); MONOCYTES PERCENT AUTO 10.1 % (0.0-8.0); NEUTROPHILS ABSOLUTE AUTO 6.59 K/uL (1.80-7.70); NEUTROPHILS PERCENT AUTO 66.9 % (41.0-71.0); NRBC ABSOLUTE 0.00 K/uL (0.00-0.02); NRBC PERCENT 0.0 /100WBC (0.0-0.2); PLATELET COUNT,PLT 296 K/uL (150-400); RED BLOOD CELL COUNT 2.38 M/uL (4.52-5.90); WHITE BLOOD CELL COUNT,WBC 9.86 K/uL (3.9-11.3)
[2025-04-09 19:07] LABS: A/G RATIO 0.8 (0.9-1.6); ALANINE AMINOTRANSFERASE,ALT 12 IU/L (14-63); ASPARTATE AMNIOTRANSFERASE,AST 16 IU/L (15-37); BILIRUBIN TOTAL 1.0 mg/dL (0.2-1.0); BLOOD UREA NITROGEN,BUN 75 mg/dL (7.0-18.0); CARBON DIOXIDE,CO2 25.2 mmol/L (21.0-32.0); CHLORIDE,CL 102 mmol/L (98-107); CREATININE 2.8 mg/dL (0.8-1.3); GLUCOSE RANDOM 118 mg/dL (74-106); POTASSIUM,K 4.9 mmol/L (3.5-5.1); PROTEIN TOTAL,TP 7.5 g/dL (6.4-8.2); SODIUM,NA 140 mmol/L (136-148)
[2025-04-09 19:09] LABS: INR 1.13 (0.86-1.11); PTT,PARTIAL THROMBOPLSTIN TIME 25.4 SEC (23.9-30.7)
[2025-04-09 19:12] LABS: ESTIMATED GFR 23 mL/min (>60)
[2025-04-09 19:24] LABS: CREATINE KINASE,CK 49.0 U/L (26-308); PRO B-TYPE NATRIUR PEPT,BNPPRO 2803.0 pg/mL (0-125); TSH ULTRASENSITIVE 4.32 uIU/mL (0.36-3.74)
[2025-04-09] MEDS: cefTRIAXone 2 GM in Water For Injection, Sterile 20 ML IVPUSH ONE (20:50)
[2025-04-09] MEDS: Pantoprazole 80 MG in Sodium Chloride 0.9% 10 ML IVPUSH ONE (21:04)
[2025-04-10] MEDS: Norepinephrine Bit/D5W Premix 250 ML IV SCH (00:42)
[2025-04-10] MEDS: Norepinephrine Bit/D5W Premix 250 ML ONE (00:53)
[2025-04-10] MEDS: Factor IX Complex Human 500 UNIT VIAL IV ONE (05:09)
[2025-04-10 06:48] LABS: BLOOD UREA NITROGEN,BUN 71 mg/dL (7.0-18.0); CARBON DIOXIDE,CO2 25.4 mmol/L (21.0-32.0); CHLORIDE,CL 105 mmol/L (98-107); CREATININE 2.4 mg/dL (0.8-1.3); GLUCOSE RANDOM 116 mg/dL (74-106); POTASSIUM,K 4.3 mmol/L (3.5-5.1); SODIUM,NA 140 mmol/L (136-148)
[2025-04-10 06:51] LABS: ESTIMATED GFR 28 mL/min (>60)
[2025-04-10 09:10] VITALS: BP 114/62; PULSE 61
== END 2025-04-10 09:07 ==
LOC: MW.ED 18:32
DX: I11.0 Hypertensive heart disease with heart failure (principal); I50.9 Heart failure, unspecified; I95.9 Hypotension, unspecified; D64.9 Anemia, unspecified; E66.9 Obesity, unspecified; E03.9 Hypothyroidism, unspecified; Z79.890 Hormone replacement therapy; Z79.899 Other long term (current) drug therapy
CPT/HCPCS: 36415; 36430; 71045; 71250; 74176; 76705; 80048; 80053; 82550; 83605; 83690; 83735; 83880; 84443; 84484; 85014; 85018; 85025; 85610; 85730; 86850; 86900; 86901; 86920; 93005; 96361; 96365; 96366; 96368; 96375; 99285; A4216; J0696; J2470; J7040; J7168; P9016; P9047; 99284